=== PATIENT | male | born 1990 | race Caucasian/White ===

== ENCOUNTER 2021-01-06 20:21 | Emergency (ER) | payer BC ==
--- OUTSIDE RECORDS SUMMARY | 2021-01-06 20:24 | XMS REPORT | Continuity of Care Document ---
:1990 Author Organization [facility] t Address [address] [place] [address] Care Team Providers Name Role Phone Beatriz BIRDP Attending Clinician Pcp, Does Not Have A Attending Clinician Problems This patient has no known problems. Allergies, Adverse Reactions, Alerts This patient has no known allergies or adverse reactions. Medications This patient has no known medications. Procedures This patient has no known procedures. Encounters Start End Encounter Admission Attending Care Care Encounter Source Date/Time Date/Time Type Type Clinicians Facility Department ID 2020-10-03 2020-10-03 [facility] [place] [id number] 14:58:46 15:18:46 ne Visit [facility] [id number] [place] [id number] Professio [phone] [address] 2020-09-26 2020-09-26 Telephone [facility] [id number] 00:00:00 00:00:00 Patient Health [id number] Does Not Surgical [id number] Have A Specialti [phone] [address] [place] Results This patient has no known results.
--- NOTE | 2021-01-06 22:29 | EDPHYS ---
Physician Documentation [facility] Name: Jose Fulton Age: 30 yrs Sex: Male : 1990 Arrival Date: 01/06/2021 Time: 20:25 Bed DX2 Private MD: ED Physician Michael Palomares HPI: 01/06 22:27 This 30 yrs old Male presents to ER via Ambulatory with complaints of Runny pm1 Nose, Cough, Sore Throat, Body Ache. 22:27 The patient or guardian reports cough, with no sputum. Onset: The symptoms/episode pm1 began/occurred today. Severity of symptoms: in the emergency department the symptoms are unchanged. Modifying factors: The symptoms are alleviated by nothing, the symptoms are aggravated by nothing. Associated signs and symptoms: Pertinent positives: diarrhea, nausea, sore throat, body aches and chills, Pertinent negatives: chest pain, vomiting. The patient has not experienced similar symptoms in the past. The patient has not recently seen a physician. Exposure to coworkers with covid. Historical: - Allergies: 20:32 No Known Allergies; ca1 - Home Meds: 20:32 None [Active]; ca1 - PMHx: 20:32 None; ca1 - PSHx: 20:32 None; ca1 - Immunization history:: Client reports having NOT received the Covid vaccine. - Social history:: Smoking status: Patient denies any tobacco usage or history of. ROS: 22:27 Eyes: Negative for injury, pain, redness, and discharge. pm1 22:27 Cardiovascular: Negative for chest pain, palpitations, and edema. 22:27 Back: Negative for injury and pain, MS/Extremity: Negative for injury and deformity, Skin: Negative for injury, rash, and discoloration, Neuro: Negative for headache, weakness, numbness, tingling, and seizure. 22:27 Constitutional: Positive for body aches, chills, Negative for poor PO intake. 22:27 ENT: Positive for sore throat, Negative for ear pain. 22:27 Respiratory: Positive for cough, Negative for shortness of breath. 22:27 Abdomen/GI: Positive for nausea, diarrhea, Negative for abdominal pain, vomiting. Exam: 22:27 Constitutional: This is a well developed, well nourished patient who is awake, alert, pm1 and in no acute distress. Head/Face: Normocephalic, atraumatic. 22:27 Neck: Trachea midline, no thyromegaly or masses palpated, and no cervical lymphadenopathy. Supple, full range of motion without nuchal rigidity, or vertebral point tenderness. No Meningismus. 22:27 Back: No spinal tenderness. No costovertebral tenderness. Full range of motion. Skin: Warm, dry with normal turgor. Normal color with no rashes, no lesions, and no evidence of cellulitis. MS/ Extremity: Pulses equal, no cyanosis. Neurovascular intact. Full, normal range of motion. 22:27 Eyes: Exam is negative for acute changes, Extraocular movements: no acute changes, Conjunctiva: normal, no injection. 22:27 ENT: Exam is negative for acute changes, Mouth: Lips: normal, Oral mucosa: normal, pink and intact, moist. 22:27 Cardiovascular: Exam negative for acute changes, Rate: normal, Rhythm: regular, Pulses: no pulse deficits are appreciated. 22:27 Respiratory: Exam negative for acute changes, respiratory distress, shortness of breath, Breath sounds: are clear throughout. 22:27 Neuro: Exam negative for acute changes, Orientation: is normal, Motor: is normal, moves all fours. Vital Signs: 20:30 BP 135 / 88; Pulse 89; Resp 18 S; Temp 99.3(TE); Pulse Ox 99% on R/A; Weight 70.31 kg ca1 (R); Height 5 ft. 8 in. (172.72 cm) (R); Pain 0/10; 22:40 BP 121 / 76; Pulse 81; Resp 16 S; Pulse Ox 99% on R/A; ca1 20:30 Body Mass Index 23.57 (70.31 kg, 172.72 cm) ca1 MDM: 22:27 Data reviewed: vital signs. Data interpreted: Pulse oximetry: on room air is 99 %. pm1 Interpretation: normal. Counseling: I had a detailed discussion with the patient and/or guardian regarding: the historical points, exam findings, and any diagnostic results supporting the discharge/admit diagnosis, lab results, the need for outpatient follow up, to return to the emergency department if symptoms worsen or persist or if there are any questions or concerns that arise at home. 22:28 Patient medically screened. pm1 01/06 20:32 Order name: Flu; Complete Time: 22:23 ca1 01/06 20:32 Order name: Strep; Complete Time: 22:23 ca1 01/06 21:08 Order name: Throat Culture EDMS 01/06 21:50 Order name: SARS-COV-2 RT PCR; Complete Time: 22:23 EDMS Administered Medications: No medications were administered Disposition: 01/07 04:22 Co-signature as Attending Physician, Michael Palomares MD. [email or web address] Disposition Summary: 01/06/21 22:28 Discharge Ordered Location: Home pm1 Problem: new pm1 Symptoms: have improved pm1 Condition: Stable pm1 Diagnosis - Coronavirus infection, unspecified pm1 Followup: pm1 - With: Emergency Department - When: As needed - Reason: Worsening of condition Followup: pm1 - With: Private Physician - When: 2 - 3 days - Reason: Recheck today's complaints, Continuance of care, Re-evaluation by your physician Discharge Instructions: - COVID-19 pm1 - Discharge Summary Sheet ca1 Forms: - Medication Reconciliation Form pm1 - Thank You Letter pm1 - Antibiotic Education pm1 - Prescription Opioid Use pm1 - Work release form ca1 Signatures: Dispatcher [employer] EDMS Tristan Villalobos, STOCK LIFTER STOCK LIFTER pm1 Omaira Rivera RN RN ca1 Michael Palomares MD MD 7 Corrections: (The following items were deleted from the chart) 01/06 20:55 20:33 CORONAVIRUS+ ordered. EDME EDMS
--- NOTE | 2021-01-06 22:29 | ER ---
Nurse's Notes [facility] Name: Jose Fulton Age: 30 yrs Sex: Male : 1990 Arrival Date: 01/06/2021 Time: 20:25 Bed DX2 Private MD: Diagnosis: Coronavirus infection, unspecified Presentation: 01/06 20:30 Chief complaint: Patient states: S/S started today. Chills, body aches, Nausea, ca1 diarrhea, cough, congestion, sore throat. Coronavirus screen: Client denies travel out of the [place] in the last 14 days. chills, congestion, cough unrelated to allergies, diarrhea, muscle pain, nausea, runny nose, sore throat, Client presents with at least one sign or symptom that may indicate coronavirus-19. Standard/surgical mask placed on the client. Provider contacted for isolation considerations. Ebola Screen: Patient negative for fever greater than or equal to 101.5 degrees Fahrenheit, and additional compatible Ebola Virus Disease symptoms Patient denies exposure to infectious person. Patient denies travel to an Ebola-affected area in the 21 days before illness onset. No symptoms or risks identified at this time. Initial Sepsis Screen: Does the patient meet any 2 criteria? No. Patient's initial sepsis screen is negative. Does the patient have a suspected source of infection? No. Patient's initial sepsis screen is negative. Risk Assessment: Do you want to hurt yourself or someone else? Patient reports no desire to harm self or others. Onset of symptoms was January 06, 2021. 20:30 Method Of Arrival: Ambulatory ca1 20:30 Acuity: PARESH 4 ca1 Historical: - Allergies: 20:32 No Known Allergies; ca1 - Home Meds: 20:32 None [Active]; ca1 - PMHx: 20:32 None; ca1 - PSHx: 20:32 None; ca1 - Immunization history:: Client reports having NOT received the Covid vaccine. - Social history:: Smoking status: Patient denies any tobacco usage or history of. Screenin:51 Abuse screen: Denies threats or abuse. Denies injuries from another. Nutritional ca1 screening: No deficits noted. Tuberculosis screening: No symptoms or risk factors identified. Fall Risk None identified. Assessment: 21:51 General: Appears in no apparent distress. comfortable, Behavior is calm, cooperative, ca1 appropriate for age, Reports feeling ill for 0-12 hours. General: Reports. Pain: Denies pain. Neuro: Level of Consciousness is awake, alert, obeys commands, Oriented to person, place, time, situation. Respiratory: Airway is patent Respiratory effort is even, unlabored, Respiratory pattern is regular, symmetrical, Breath sounds are clear bilaterally. Respiratory: Reports cough that is. EENT: Throat is clear Reports nasal congestion. Derm: Skin is intact, is healthy with good turgor, Skin is pink, warm \T\ dry. Musculoskeletal: Circulation, motion, and sensation intact. Capillary refill < 3 seconds. 22:40 Reassessment: Patient appears in no apparent distress at this time. Patient is alert, ca1 oriented x 3, equal unlabored respirations, skin warm/dry/pink. Vital Signs: 20:30 BP 135 / 88; Pulse 89; Resp 18 S; Temp 99.3(TE); Pulse Ox 99% on R/A; Weight 70.31 kg ca1 (R); Height 5 ft. 8 in. (172.72 cm) (R); Pain 0/10; 22:40 BP 121 / 76; Pulse 81; Resp 16 S; Pulse Ox 99% on R/A; ca1 20:30 Body Mass Index 23.57 (70.31 kg, 172.72 cm) ca1 ED Course: 20:25 Patient arrived in ED. bp1 20:31 Triage completed. ca1 20:32 Arm band placed on right wrist. ca1 21:49 Notified ED physician of a critical lab result(s). COVID+. ca1 21:50 Omaira Rivera, RN is Primary Nurse. ca1 21:51 Patient has correct armband on for positive identification. ca1 21:51 No provider procedures requiring assistance completed. Patient did not have IV access ca1 during this emergency room visit. 22:04 Tristan Villalobos NP is PHCP. pm1 22:04 Michael Palomares MD is Attending Physician. pm1 Administered Medications: No medications were administered Outcome: 22:28 Discharge ordered by . pm1 22:40 Discharged to home ambulatory. ca1 22:40 Condition: stable 22:40 Discharge instructions given to patient, Instructed on discharge instructions, follow up and referral plans. Demonstrated understanding of instructions, follow-up care. 22:41 Patient left the ED. ca1 Signatures: Tristan Villalobos CARDIOLOGY FELLOW CARDIOLOGY FELLOW pm1 Omaira Rivera, RN RN ca1 Radha, Yuki bp1
[2021-01-06 22:55] VITALS: TEMP 99.3; O2SAT 99
[2021-01-06 22:57] VITALS: BP 121/76
== END 2021-01-06 22:41 | disposition home or self-care (01) ==
LOC: ER 20:21
DX: U07.1 COVID-19 (principal)
CPT/HCPCS: 87070; 87081; 87804 ×2; U0003; 99281